=== PATIENT | female | born 1990 | race Caucasian/White ===

== ENCOUNTER 2016-09-04 14:00 | Outpatient (RCR) | payer OTHER ==
[~2016-09-04 14:00] MED LIST: PRENATAL1 TA7 PO
== END 2016-12-03 ==
LOC: WSOH
DX: S39.012A Strain of muscle, fascia and tendon of lower back, initial encounter (principal); X50.3XXA Overexertion from repetitive movements, initial encounter; Y99.0 Civilian activity done for income or pay